=== PATIENT | female | born 1970 | race Caucasian/White ===

== ENCOUNTER 2025-04-29 06:19 | Day surgery (SDC) | payer OTHER ==
[2025-04-27 12:09] VITALS: BMI 24.6
[2025-04-29] MEDS ORDERED: CEFAZOLIN 2 GM VIAL ONE (07:29)
[2025-04-29] MEDS ORDERED: PROPOFOL 20 ML ONE ×2 (08:04→08:40)
[2025-04-29] MEDS ORDERED: Ondansetron PF 4 MG/2 ML Vial ONE (08:54)
[2025-04-29] MEDS ORDERED: Ketorolac Tromethamine 30 MG (1 mL) VIAL ONE ×2 (10:35→10:36)
[2025-04-29] MEDS ORDERED: HYDROmorphone 0.5 MG/0.5 ML SYRINGE ONE (11:21)
[2025-04-29] MEDS ORDERED: HYDROcodone/Acetaminophen 5/325 mg Tablet ONE (12:07)
== END 2025-04-29 12:38 | disposition home or self-care (01) ==
LOC: CSHSDC 06:19
PROVIDERS: ATTEND Podiatrist Foot & Ankle Surgery
PROC: 0SGM04Z Fusion of Right Metatarsal-Phalangeal Joint with Internal Fixation Device, Open Approach (ICD-10-PCS; principal; 2025-04-29)
DX: M20.21 Hallux rigidus, right foot (principal); I10 Essential (primary) hypertension; Z87.59 Personal history of other complications of pregnancy, childbirth and the puerperium
CPT/HCPCS: C1713; J0665; J1100; J1171; J1885; J2704